=== PATIENT | male | born 1955 | race Caucasian/White ===

== ENCOUNTER 2016-12-07 07:22 | Emergency (ER) | payer OTHER ==
[~2016-12-07] VITALS: Ht 182.9 cm; Wt 99.2 kg
[~2016-12-07 07:22] MED LIST: FERR324T4 PO; FISH100020 PO; FURO1TAB93 PO; KLOR20TA6 PO; METF500 PO; PANT40IN3 PO; SPIR25 PO
[2016-12-07 07:36] VITALS: BP 149/79; PULSE 80; RESP 16; TEMP 97.9; O2SAT 98
--- NOTE | 2016-12-07 08:28 | PD ---
HPI Chief Complaint: right arm pain Time Seen by Provider: 08:16 Travel History International Travel<30 days: No Contact w/Intl Traveler<30days: No History of Present Illness HPI 61 y/o male presents with right lower arm pain after a part of a microwave landed on his arm. He states he originally went to an urgent care and had glue to repair a cut but did not have any imaging. He states given he is 23 days from the injury and still having pain he's worried that he broke something. He states that he is having no other concurrent complaints. Quality pain is sharp. Severity is moderate. Pain is worse with movement. PFSH Past Medical History Asthma: No Heart Rhythm Problems: No Cancer: No Chest Pain: No Congestive Heart Failure: No COPD: No Diabetes: No Diminished Hearing: No GERD: No Glaucoma: No Genitourinary: No Hepatitis: No Hiatal Hernia: No Hypertension: Yes Immune Disorder: No Kidney Stones: No Musculoskeletal: Yes (ARTHRITIS) Neurologic: No Psychiatric: No Reproductive: No Respiratory: No Immunizations Current: Yes Thyroid Disease: No Ulcer: No Past Surgical History AICD: No Cardiac Surgery: No Eye Surgery: Yes (cataract) Joint Replacement: No Oral Surgery: Yes (TONSILLECTOMY) Pacemaker: No Thoracic Surgery: No Family History Family Myocardial Infarction: Yes Social History Alcohol Use: Yes (2-4 beers daily) Tobacco Use: No Substance Use: No Allergies-Medications (Allergen,Severity, Reaction): Coded Allergies: Penicillin (Verified Allergy, Mild, RASH, 07/05/16) Reported Meds & Prescriptions Reported Meds & Active Scripts Active Percocet (Oxycodone-Acetaminophen) 5-325 mg Tab 1 Tab PO Q6H PRN Glucophage 500 mg (Metformin HCl) 500 Mg Tab 500 Mg PO DAILY 30 Days Pantoprazole Sodium 40 Mg Tab 40 Mg PO DAILY 30 Days Aldactone 25 mg (Spironolactone) 25 Mg Tab 50 Mg PO DAILY 30 Days K-Dur (Potassium Chloride) 20 Meq Tabcr 20 Meq PO DAILY 30 Days Lasix (Furosemide) 40 Mg Tab 40 Mg PO DAILY 30 Days Ferrous Sulfate 325 Mg Tab 325 Mg PO BID 30 Days Reported Fish Oil ([place]-3 Fatty Acids) 1,000 Mg Cap 1,000 Mg PO DAILY Review of Systems Except as stated in HPI: all other systems reviewed are Neg Physical Exam Narrative General: No apparent distress, well appearing ENT: mmm Neck: Neck is supple, trachea is midline Cardiovascular: Regular rate and rhythm Lungs: No increased respiratory effort noted Extremities: No edema, pain to right lower lateral forearm just above wrist with mild associated swelling in that area, no pain with other joints , neurovascularly intact, no new lacerations over, compartments soft. Neuro: Awake, motor and sensation grossly intact, normal speech Data Data Last Documented VS Vital Signs Date Time Temp Pulse Resp B/P Pulse Ox O2 Delivery O2 Flow Rate FiO2 12/07/16 07:36 97.9 80 16 149/79 98 Room Air Orders Forearm (2vws) (12/07/16 08:19) Splint Or Brace Apply/Monitor (12/07/16 09:17) [facility] Medical Decision Making Medical Screen Exam Complete: Yes Emergency Medical Condition: Yes Medical Record Reviewed: Yes (past history confirmed) Interpretation(s) Right forearm fracture healing fracture distal ulna with some fracture calculus noted-given copy Differential Diagnosis Fracture, strain, hematoma Narrative Course Patient agrees to limited workup with x-ray Patient will have splint placed, given copy of x-ray, advised to follow with orthopedic physician as wanting to leave right now to catch a plane, Patient denies any new complaints, all questions answered. Patient knows that follow up is incumbent on them and to return to the emergency room immediately if new or worsening symptoms develop. Patient given strict return precautions, vitals reviewed and are normal, agrees to further workup as an outpatient. Diagnosis Primary Impression: Ulnar fracture Qualified Code: S52.601A - Closed fracture of distal end of right ulna, unspecified fracture morphology, initial encounter Patient Instructions: Splint Care (DC) Additional Instructions: Return as needed, Percocet as needed for severe pain, follow with orthopedic physician this week Med/Other Pt SpecificInfo: Prescription(s) given Scripts Oxycodone-Acetaminophen (Percocet)5-325 mg Tab1 Tab PO Q6H PRN (PAIN) #15 TAB Prov:Dang Shaw MD 12/07/16 Disposition: 01 DISCHARGE HOME Condition: Stable Dang Shaw MD Dec 07, 2016 08:28
--- NOTE | 2016-12-07 09:11 | RADHPO ---
EXAM DATE/TIME: 12/07/2016 08:32 [place] COMPARISON: No previous studies available for comparison. INDICATIONS : Right distal forearm pain, microwave fell on forearm 23 days ago. MEDICAL HISTORY : None. SURGICAL HISTORY : None. ENCOUNTER: Initial ACUITY: 3 weeks PAIN SCORE: 6/10 LOCATION: Right distal forearm FINDINGS: There is a healing fracture of the distal ulna. Degenerative changes are seen in the radiocarpal join t. CONCLUSION: Healing fracture distal ulna with some fracture callus evident consistent with a fracture 23 days old . Joseluis Salvador MD FACR on December 07, 2016 at 9:05 Board Certified Radiologist. This report was verified electronically.
[2016-12-07] MEDS ORDERED: PERC5TAB12 PO (09:19)
[2016-12-07] MEDS ORDERED: METF500T PO (09:47)
[2016-12-07] MEDS ORDERED: FERR325T PO (09:47)
[2016-12-07] MEDS ORDERED: MENSTAB4 PO (09:47)
[2016-12-07] MEDS ORDERED: POTA-243 PO (09:47)
[2016-12-07] MEDS ORDERED: ALDA50TA2 PO (09:47)
[2016-12-07] MEDS ORDERED: PANT40TA3 PO (09:47)
[2016-12-07] MEDS ORDERED: FURO40TA PO (09:47)
== END 2016-12-07 09:48 | disposition home or self-care (01) ==
LOC: PHED 07:22
DX: S52.601A Unspecified fracture of lower end of right ulna, initial encounter for closed fracture (principal); I10 Essential (primary) hypertension; M19.90 Unspecified osteoarthritis, unspecified site; Z88.0 Allergy status to penicillin; W22.8XXA Striking against or struck by other objects, initial encounter
CPT/HCPCS: 29125; 73090